=== PATIENT | female | born 1960 | race Caucasian/White ===

== ENCOUNTER → 2016-10-10 | Outpatient (CLI) | payer OTHER ==
--- NOTE | 2016-10-10 15:14 | MR ---
MRI of the Left Knee Clinical Indications: Left knee pain. Technique: Fat-suppressed, fast T2-weighted images were acquired axially, sagittally, and coronally. T1-weighted sagittal images were obtained. Findings Medial compartment: There is diffuse moderate articular cartilage loss throughout the weightbearing a spect of the medial femoral condyle, grade 3 severity with the dominant chondral lesion measuring 20 mm AP and 12 mm mediolateral dimensions. A chondral shelf is present posteriorly at the site of chond ral irregularity and loss. The remaining articular cartilage of the medial compartment is intact and medial meniscus appears intact. Lateral compartment: Meniscus and articular cartilage appear intact. Patellofemoral compartment: Diffuse grade 3 chondral loss throughout both the medial and lateral mann llar facets. There is less severe chondral thinning, grade 2-grade 3 severity diffusely throughout th e medial trochlear sulcus. The lateral trochlear sulcus is intact. Anterior and posterior cruciate ligaments are intact. Medial and lateral collateral ligaments are int act. Distal quadriceps and patellar tendons are intact. Moderate knee joint effusion associated with a ruptured retropopliteal cyst, fluid tracking inferiorl y along the medial head of the gastrocnemius. Impression: 1. There is a 20 x 12 mm full-thickness chondral defect involving the anterior weightbearing articula r cartilage of the medial femoral condyle. 2. Diffuse underlying chondromalacia patella. 3. Knee joint effusion with ruptured retropopliteal cyst.
== END ==
LOC: FIMAGING 08:17
PROVIDERS: ATTEND Physician Assistant
DX: M22.42 Chondromalacia patellae, left knee (principal); M25.462 Effusion, left knee; M25.862 Other specified joint disorders, left knee